=== PATIENT | male | born 1980 | race Caucasian/White ===

== ENCOUNTER 2017-03-05 15:12 | Emergency (ER) | payer BC ==
[~2017-03-05] VITALS: Ht 175.3 cm; Wt 59.0 kg
[2017-03-05 15:24] VITALS: BP 146/76
== END 2017-03-05 16:14 | disposition home or self-care (01) ==
LOC: ER 15:14
DX: K59.09 Other constipation (principal)
CPT/HCPCS: A4606; Z7610

== ENCOUNTER 2019-12-12 23:39 | Emergency (ER) | payer BC ==
[~2019-12-12] VITALS: Ht 175.3 cm; Wt 58.5 kg
[2019-12-12 23:39] VITALS: BP 107/66
--- NOTE | 2019-12-13 00:04 | NUR ---
DR CHRISTINE AT BEDSIDE
[2019-12-13] MEDS ORDERED: LIDOCAINE /MPF 1% VIAL 5 ML VIAL ONE (00:15)
[2019-12-13] MEDS ORDERED: CEFTRIAXONE 1 G VIAL ONE (00:15)
[2019-12-13] MEDS ORDERED: TDAP [DIPH/PERTUSSIS/TET] 0.5 ML VIAL IM ONE ×2 (00:24→00:30)
--- NOTE | 2019-12-13 00:29 | NUR ---
Patient discharged to home in stable condition. Written and verbal after care instructions given. Patient verbalizes understanding of instruction.
[2019-12-13] MEDS ORDERED: CEFTRIAXONE 1 G VIAL IM ONE (00:30)
== END 2019-12-13 00:30 | disposition home or self-care (01) ==
LOC: ER 23:45
DX: S40.861A Insect bite (nonvenomous) of right upper arm, initial encounter (principal); L03.113 Cellulitis of right upper limb; W57.XXXA Bitten or stung by nonvenomous insect and other nonvenomous arthropods, initial encounter; Y93.89 Activity, other specified; Y92.89 Other specified places as the place of occurrence of the external cause; Y99.8 Other external cause status
CPT/HCPCS: 90471; 90715; 96372; 99284; J0696; J3490

== ENCOUNTER 2021-06-24 01:28 | Emergency (ER) | payer BC ==
[~2021-06-24] VITALS: Ht 177.8 cm; Wt 74.4 kg
[2021-06-24 01:38] VITALS: BP 124/71
== END 2021-06-24 01:51 | disposition home or self-care (01) ==
LOC: ER 01:32
DX: F41.9 Anxiety disorder, unspecified (principal)